=== PATIENT | male | born 1960 | race Caucasian/White ===

== ENCOUNTER 2017-09-06 11:04 | Observation (INO) | payer OTHER ==
[~2017-09-06] VITALS: Ht 195.6 cm; Wt 109.0 kg
[2017-09-06 11:28] LABS: HEMATOCRIT 46.5 % (38.0-50.0); HEMOGLOBIN 15.9 G/DL (12.5-16.6); MCH 30.5 PG (29.0-34.0); MCHC 34.2 G/DL (30.0-36.0); MCV 89.1 FL (86-99); PLATELET COUNT 262 K/uL (156-360); RBC DIS.WIDTH-CV 11.9 % (11.8-14.6); RBC DIS.WIDTH-SD 38.3 % (39-53); RED BLOOD COUNT 5.22 M/uL (4.00-5.50); WHITE BLOOD COUNT 12.6 K/uL (4.1-10.2)
[2017-09-06 11:37] LABS: CHLORIDE 101 mEq/L (99-109); POTASSIUM 4.4 mEq/L (3.7-5.4); SODIUM 139 mEq/L (136-147)
[2017-09-06 11:38] LABS: GLUCOSE 78 mg/dL (70-99)
[2017-09-06 11:42] LABS: CREATININE 1.6 mg/dL (0.6-1.3); GFR ESTIMATE (CALCULATED) 48 mL/min/ (58.99-99999)
[2017-09-06 11:43] LABS: UREA NITROGEN (BUN) 45 mg/dL (9-23)
[2017-09-06 11:47] LABS: TROP-I INTERPRETATION NEGATIVE; TROPONIN-I < 0.01 ng/mL (0.0-0.30)
[2017-09-06] MEDS ORDERED: OMEPRAZOLE40 M1 PO (13:35)
[2017-09-06] MEDS ORDERED: AMBIEN10 MG PO (13:35)
[2017-09-06] MEDS ORDERED: DIOVAN HCT 31 TABLE1 PO (13:35)
[2017-09-06] MEDS ORDERED: FENOFIBRATE160 M1 PO (13:35)
[2017-09-06] MEDS ORDERED: PRAVACHOL40 MG PO (13:35)
[2017-09-06] MEDS ORDERED: EXCEDRIN MIGRA1 EAC3 PO (13:36)
[2017-09-06 15:21] VITALS: BP 158/86
[2017-09-06 18:39] LABS: TROP-I INTERPRETATION NEGATIVE; TROPONIN-I < 0.01 ng/mL (0.0-0.30)
[2017-09-06 19:41] VITALS: BP 128/73
[2017-09-07 00:02] VITALS: BP 118/58
[2017-09-07 01:12] LABS: TROP-I INTERPRETATION NEGATIVE; TROPONIN-I < 0.01 ng/mL (0.0-0.30)
[2017-09-07 04:27] VITALS: BP 130/77
[2017-09-07 05:17] LABS: HEMATOCRIT 43.2 % (38.0-50.0); HEMOGLOBIN 14.2 G/DL (12.5-16.6); MCH 29.3 PG (29.0-34.0); MCHC 32.9 G/DL (30.0-36.0); MCV 89.1 FL (86-99); PLATELET COUNT 233 K/uL (156-360); RBC DIS.WIDTH-CV 11.7 % (11.8-14.6); RBC DIS.WIDTH-SD 37.9 % (39-53); RED BLOOD COUNT 4.85 M/uL (4.00-5.50); WHITE BLOOD COUNT 11.8 K/uL (4.1-10.2)
[2017-09-07 05:36] LABS: CHLORIDE 104 MEQ/L (99-109); CREATININE 1.3 MG/DL (0.6-1.3); GFR ESTIMATE (CALCULATED) > 59 mL/min/ (58.99-99999); GLUCOSE 87 mg/dL (70-99); SODIUM 139 MEQ/L (136-147); UREA NITROGEN (BUN) 36 mg/dL (9-23)
[2017-09-07 09:11] VITALS: BP 139/81
[2017-09-07] MEDS ORDERED: NIFEDIPINE ER60 MG PO (10:02)
== END 2017-09-07 11:54 | disposition home or self-care (01) ==
LOC: EME 11:04 → 4SOUTH 13:01 → EDOF 13:01 → ENRESERV 13:30 → 4SOUTH 14:47
PROVIDERS: Emergency Medicine; Hospitalist
DX: N17.9 Acute kidney failure, unspecified (principal); E86.0 Dehydration; I10 Essential (primary) hypertension; E78.5 Hyperlipidemia, unspecified
CPT/HCPCS: 71046; 80048; 83880; 84484; 85027; 93005; 99281; 99285; G0378; J7030